=== PATIENT | male | born 1965 | race Two or more races ===

== ENCOUNTER 2023-04-09 16:02 | Emergency (ER) | payer MEDICAID, OTHER ==
[~2023-04-09] VITALS: Ht 177.8 cm; Wt 114.0 kg
[2023-04-09 16:58] LABS: BASOPHILS % 0.7 % (0.0-2.0); EOSINOPHILS % 5.7 % (0.0-5.0); HEMATOCRIT. 40.8 % (42.0-52.0); HEMOGLOBIN. 14.3 g/dL (14.0-18.0); LYMPHOCYTES % 27.6 % (20.0-50.0); MEAN CORPUSCULAR HEMOGLOBIN 31.8 pg (28.0-32.0); MEAN CORPUSCULAR VOLUME 90.7 fL (80.0-94.0); MEAN PLATELET VOLUME 8.9 fl (7.4-10.4); MONOCYTES % 12.3 % (2.0-8.0); NEUTROPHILS % 53.7 % (40.0-76.0); PLATELET 192 x1000/uL (130-400); RED CELL DISTRIBUTION WIDTH 13.2 % (11.6-14.6)
[2023-04-09 17:15] LABS: CHLORIDE 102 mEq/L (98-107)
[2023-04-09] MEDS ORDERED: MORPHINE SULFATE 10 MG/ML CPJ IM ONE (17:30)
[2023-04-09] MEDS ORDERED: BACITRACIN ZINC OINT UDPKT TOP ONE (22:30)
[2023-04-09 23:10] VITALS: BP 120/80
== END 2023-04-09 23:11 | disposition home or self-care (01) ==
LOC: ER 16:02
DX: S09.90XA Unspecified injury of head, initial encounter (principal); R55 Syncope and collapse; E11.9 Type 2 diabetes mellitus without complications; I10 Essential (primary) hypertension; X58.XXXA Exposure to other specified factors, initial encounter; Y93.89 Activity, other specified; Y92.89 Other specified places as the place of occurrence of the external cause; Y99.8 Other external cause status
CPT/HCPCS: 36415; 70450; 71045; 80053; 84484; 85025; 93005; 99291; Z7610